=== PATIENT | male | born 2000 | race African-American/Black ===

== ENCOUNTER 2024-06-07 06:16 | Emergency (ER) | payer SELFPAY ==
[~2024-06-07] VITALS: Ht 165.1 cm; Wt 114.0 kg
[2024-06-07 06:26] VITALS: O2SAT 100
[2024-06-07] MEDS: ACETAMINOPHEN 325MG TABLET PO STA (06:56)
[2024-06-07] MEDS ORDERED: CYCL10TA21 MT (07:17)
[2024-06-07] MEDS ORDERED: IBUP-2029 MT (07:17)
[2024-06-07 07:47] VITALS: BP 134/96; PULSE 69; RESP 18; TEMP 98.3
== END 2024-06-07 07:56 | disposition home or self-care (01) ==
LOC: ER 06:16
DX: S50.811A Abrasion of right forearm, initial encounter (principal); R07.89 Other chest pain; M25.511 Pain in right shoulder; J45.909 Unspecified asthma, uncomplicated; V98.8XXA Other specified transport accidents, initial encounter; Y93.89 Activity, other specified; Y92.89 Other specified places as the place of occurrence of the external cause; Y99.8 Other external cause status
CPT/HCPCS: 71045; 99283